=== PATIENT | male | born 1975 | race Caucasian/White ===

== ENCOUNTER 2016-03-20 11:32 | Emergency (ER) | payer OTHER ==
--- NOTE | 2016-03-20 12:18 | Emergency Department Report ---
Chief Complaint: Chest Pain Stated Complaint: CHEST PAIN/SOB/DIZZINESS/HEADACHE Time Seen by Provider: 03/20/16 12:12 - HPI History of Present Illness: Patient reports chest pain, difficulty breathing, dizziness and headache since getting off the plane yesterday at noon. Patient has a hx of DVT and currently takes Pradaxa - ROS Review of Systems: all other systems are unremarkable except for documentation in HPI - Exam Vital Signs: Vital Signs 03/20/16 11:59 Temperature 97.9 F Pulse Rate 77 Respiratory 18 Rate Blood Pressure 117/69 O2 Sat by Pulse 100 Oximetry Physical Exam: Gen: well developed and nourished, NAD Cardio: heart sounds present S1-S2, no ectopy, murmur or gallops Resp: even and unlabored, lungs CTA uzair, no wheezing, rales or rhonchi MSE screening note: Focused history and physical exam performed. Due to findings the following was ordered: radiology and laboratory studies ordered ED Disposition for MSE Condition: Stable
[2016-03-20 12:36] LABS: Basophils % (Auto) 0.8 % (0.0-1.8); Eosinophils % (Auto) 1.1 % (0.0-4.3); Hematocrit 41.7 % (35.5-45.6); Hemoglobin 14.1 gm/dl (11.8-15.2); Mean Corpuscular HGB Conc 34 % (32-34); Mean Corpuscular Hemoglobin 31 pg (28-32); Mean Corpuscular Volume 92 fl (84-94); Platelet Count 215 K/mm3 (140-440); Red Blood Count 4.55 M/mm3 (3.65-5.03); Red Cell Distribution Width 13.2 % (13.2-15.2); White Blood Count 5.3 K/mm3 (4.5-11.0)
--- NOTE | 2016-03-20 12:41 | XRay Report ---
Chest 2 views: History: Chest pain. Findings: Normal cardiomediastinal silhouette. Trachea is midline. No consolidation, pneumothorax or pleural effusion. Impression: No acute cardiopulmonary findings.
[2016-03-20 12:45] LABS: INR 1.14 (0.87-1.13)
[2016-03-20 12:46] LABS: Partial Thromboplastin Time 41.2 Sec. (24.2-36.6)
[2016-03-20 13:00] LABS: Creatine Kinase MB 1.2 ng/mL (0.0-4.0)
[2016-03-20 13:01] LABS: Alanine Aminotransferase 117 units/L (7-56); Albumin/Globulin Ratio 1.3 %; Alkaline Phosphatase 48 units/L (35-129); Anion Gap 15 mmol/L; Bilirubin,Total 0.6 mg/dL (0.1-1.2); Blood Urea Nitrogen 12 mg/dL (9-20); Calcium 9.3 mg/dL (8.4-10.2); Carbon Dioxide 30 mmol/L (22-30); Chloride 103.8 mmol/L (98-107); Glucose 96 mg/dL (75-100); Potassium 4.6 mmol/L (3.6-5.0); Sodium 144 mmol/L (137-145)
[2016-03-20 13:02] LABS: Creatine Kinase 156 units/L (55-170)
[2016-03-20] MEDS ORDERED: NACL ONE ×2 (22:10→22:58)
--- NOTE | 2016-03-20 23:45 | Cat Scan Report ---
FINAL REPORT EXAM: CT ANGIO CHEST HISTORY: chest pain TECHNIQUE: High-resolution helical axial images were obtained of the chest during rapid administration of iodinated contrast. Images are reconstructed in the sagittal and coronal planes. PRIORS: None. FINDINGS: There is no evidence of pulmonary embolism, the pulmonary arteries opacify normally. The heart and thoracic aorta appear normal. The lungs are clear. Images through the upper abdomen are unremarkable. The bones are unremarkable. IMPRESSION: 1. No evidence of pulmonary embolism. 2. No acute findings in the chest
--- NOTE | 2016-03-21 01:27 | Emergency Department Report ---
HPI - General Chief Complaint: Chest Pain Time Seen by Provider: 03/20/16 22:08 - HPI HPI: The patient is a 40-year-old male with a history of DVT, who presents for evaluation of chest pain. The patient reports 4-5 days of on and off chest pain , constant since this morning, greater than 8 hours prior to my evaluation, midsternal in location, sharp in quality, currently mild in severity. The patient denies fever, neck pain, parasthesias, cough, hemoptysis, palpitations, dizziness, syncope, unilateral leg swelling, calf muscle pain. Patient also denies cocaine or other stimulant use, congenital heart disease, or history of cancer. ED Past Medical Hx - Past Medical History Previous Medical History?: Yes Hx Deep Vein Thrombosis: Yes (Left calf, uzair lungs) - Surgical History Past Surgical History?: No - Social History Smoking Status: Never Smoker Substance Use Type: Prescribed - Medications Home Medications: Home Medications Medication Instructions Recorded Confirmed Last Taken Type Dabigatran [Pradaxa] 150 mg PO BID 03/20/16 03/20/16 03/20/16 History Diazepam Tab [Valium] 2.5 mg PO Q8HR PRN #10 tablet 03/21/16 Unknown Rx Omeprazole Magnesium [PriLOSEC Otc] 20 mg PO QDAY #14 tablet. 03/21/16 Unknown Rx ED Review of Systems ROS: Stated complaint: CHEST PAIN/SOB/DIZZINESS/HEADACHE Other details as noted in HPI Constitutional: denies: fever ENT: denies: throat or neck pain Respiratory: denies: cough, shortness of breath Cardiovascular: reports chest pain Endocrine: denies unexplained weight loss or gain Gastrointestinal: denies: abdominal pain, nausea Genitourinary: denies: dysuria Musculoskeletal: denies: leg swelling Skin: denies: rash Neurological: denies: headache Hematological/Lymphatic: denies: easy bleeding or easy bruising Psych: denies sadness or hopelessness Physical Exam - Physical Exam Vital Signs: Vital Signs 03/20/16 03/20/16 03/20/16 11:59 20:31 22:03 Temperature 97.9 F 98.1 F 98.5 F Pulse Rate 77 77 73 Respiratory 18 18 20 Rate Blood Pressure 117/69 120/66 Blood Pressure 122/71 [Left] O2 Sat by Pulse 100 97 97 Oximetry 03/20/16 22:31 Temperature Pulse Rate Respiratory 20 Rate Blood Pressure Blood Pressure [Left] O2 Sat by Pulse 98 Oximetry Physical Exam: General: well-nourished, well-developed, no acute distress Head: Normocephalic, atraumatic Eyes: normal sclera ENT: Mucous membranes are pink and moist Neck: trachea midline, neck supple, No neck stiffness, no cervical adenopathy Respiratory: Breath sounds equal bilaterally, no wheezing, rales, or rhonchi Cardio: S1 and S2 present, no murmurs, rubs, gallops, capillary refill is brisk Abdomen: Normoactive bowel sounds, soft abdomen, no rigidity, no guarding or rebound tenderness Chest WALL/Back: No tenderness to palpation of the chest wall, no CVA tenderness with percussion Musc: No pitting edema Skin: No rash Neuro: no facial drooping, normal speech Psych: Normal affect ED Course Vital Signs 03/20/16 03/20/16 03/20/16 11:59 20:31 22:03 Temperature 97.9 F 98.1 F 98.5 F Pulse Rate 77 77 73 Respiratory 18 18 20 Rate Blood Pressure 117/69 120/66 Blood Pressure 122/71 [Left] O2 Sat by Pulse 100 97 97 Oximetry 03/20/16 22:31 Temperature Pulse Rate Respiratory 20 Rate Blood Pressure Blood Pressure [Left] O2 Sat by Pulse 98 Oximetry ED Medical Decision Making - Lab Data Result diagrams: 03/20/16 12:24 03/20/16 12:24 - Medical Decision Making The patient was seen and examined by myself. The patient is placed on a electrical contractor and continuous pulse ox. On initial evaluation, the patient was found to be in no distress. EKG was negative for findings suggestive of acute cardiac infarct. Labs and imaging are obtained. The patient declined pain medicine. Chest x-ray is negative for pneumothorax, focal consolidation, pulmonary vascular congestion, pleural effusion, or other obvious acute cardiopulmonary disease process. Lab results were non-concerning including levels of troponin, WBC, hemoglobin, hematocrit, electrolytes, renal function. The patient was reevaluated and reported that their symptoms were markedly improved. As the patient has a HUBERT risk score less than 2, and a CT angiogram of the chest negative for findings suggestive of pulmonary embolism, the patient is at low risk of ACS or pulmonary emboli etiology of their symptoms. The patient is stable for discharge with outpatient follow-up. The patient is given follow-up and return instructions. The patient expressed understanding and agreed with the plan. The patient is discharged in stable condition. Critical care attestation.: If time is entered above; I have spent that time in minutes in the direct care of this critically ill patient, excluding procedure time. ED Disposition Clinical Impression: Acute chest pain Disposition: DISCHARGED TO HOME OR SELFCARE Is pt being admited?: No Does the pt Need Aspirin: No Condition: Stable Instructions: Chest Pain (ED) Referrals: PRIMARY CAREMD [Primary Care Provider] - 3-5 Days Time of Disposition: 01:21
[2016-03-21 02:45] VITALS: BP 120/87
== END 2016-03-21 02:05 | disposition home or self-care (01) ==
LOC: ED 11:32
DX: R07.2 Precordial pain (principal); Z86.718 Personal history of other venous thrombosis and embolism; Z79.01 Long term (current) use of anticoagulants
CPT/HCPCS: 36415; 71020; 71275; 80053; 82550; 82553; 84484; 85025; 85610; 85730; 93005; 93010; 99285; Q9967